=== PATIENT | female | born 1955 | race Caucasian/White ===

== ENCOUNTER 2019-10-07 10:28 | Outpatient (CLI) | payer MEDICARE ==
[2019-10-07 13:28] LABS: BASOPHILS # (AUTO) 0.02 x10^3/uL (0-0.1); BASOPHILS % (AUTO) 0 % (0-1); EOSINOPHILS # (AUTO) 0.09 x10^3/uL (0-0.4); EOSINOPHILS % (AUTO) 2 % (1-7); INTERNATIONAL NORMALIZED RATIO 0.97 (0.93-1.1); LYMPHOCYTES # (AUTO) 1.35 x10^3/uL (1-3.4); LYMPHOCYTES % (AUTO) 27 % (22-44); MD NO; MEAN CORPUSCULAR HEMOGLOBIN 31.8 pg (27.0-34.8); MEAN CORPUSCULAR HGB CONC 33.7 g/dL (32.4-35.8); MEAN CORPUSCULAR VOLUME 94.4 fL (80-100); MEAN PLATELET VOLUME 10.5 fL (7.4-10.4); MONOCYTES # (AUTO) 0.55 x10^3/uL (0.2-0.8); MONOCYTES % (AUTO) 11 % (2-9); NEUTROPHILS # (AUTO) 2.92 x10^3/uL (1.8-6.8); NEUTROPHILS % (AUTO) 59 % (42-75); PLATELET COUNT 147 x10^3/uL (130-400); PROTHROMBIN TIME 10.2 Seconds (9.6-11.5); RED BLOOD COUNT 4.82 x10^6/uL (3.82-5.3); RED CELL DISTRIBUTION WIDTH 12.3 % (9.6-15.2)
[2019-10-07 13:37] LABS: ANION GAP 5 mmol/L (5-15); CALCIUM 9.2 mg/dL (8.5-10.1); CHLORIDE 105 mmol/L (98-107); CREATININE 1.06 mg/dL (0.55-1.02)
== END 2019-10-07 23:59 | disposition home or self-care (01) ==
LOC: CFH 10:28
PROVIDERS: ATTEND Internal Medicine Cardiovascular Disease
DX: I34.0 Nonrheumatic mitral (valve) insufficiency (principal); I10 Essential (primary) hypertension
CPT/HCPCS: 36415; 80048; 83735; 85025; 85610; 85730

== ENCOUNTER 2019-10-10 08:51 | Day surgery (SDC) | payer MEDICARE ==
[~2019-10-10] VITALS: Ht 167.6 cm; Wt 53.2 kg
[2019-10-10 09:34] VITALS: BP 130/72
[2019-10-10] MEDS ORDERED: SODIUM CHLORIDE 0.9% 1,000 ML IV SCH ×2 (09:38→11:45)
[2019-10-10] MEDS ORDERED: CHOL2000 PO (09:45)
[2019-10-10] MEDS ORDERED: MAGN400T36 PO (09:45)
[2019-10-10] MEDS ORDERED: POTA8CAP20 PO (09:45)
[2019-10-10] MEDS ORDERED: METO-93 PO (09:45)
[2019-10-10] MEDS ORDERED: DIPHENHYDRAMINE 50 MG/ML, 1ML IVPush ONE (10:00)
[2019-10-10] MEDS ORDERED: FENTANYL PF 100 MCG/2ML ONE (10:26)
[2019-10-10] MEDS ORDERED: MIDAZOLAM 1 MG/ML, 5ML ONE (10:26)
[2019-10-10] MEDS ORDERED: TICAGRELOR 90 MG TABLET ONE (10:26)
[2019-10-10] MEDS ORDERED: LIDOCAINE-MPF 1%, 5ML ONE (10:27)
[2019-10-10] MEDS ORDERED: BIVALIRUDIN 250 MG ONE (10:27)
[2019-10-10] MEDS ORDERED: HEPARIN 1,000 UNITS/ML, 10ML ONE (10:27)
[2019-10-10] MEDS ORDERED: PROPOFOL 50 ML ONE (10:59)
[2019-10-10] MEDS ORDERED: VERAPAMIL 2.5 MG/ML, 2ML ONE (11:26)
== END 2019-10-10 14:14 | disposition home or self-care (01) ==
LOC: CACL 08:51
PROVIDERS: ATTEND Internal Medicine Cardiovascular Disease
DX: I34.0 Nonrheumatic mitral (valve) insufficiency (principal); I10 Essential (primary) hypertension; F41.9 Anxiety disorder, unspecified; Z79.82 Long term (current) use of aspirin; Z79.899 Other long term (current) drug therapy
CPT/HCPCS: 93312; 93325; 93458; C1769; C1894; J1644; J2704; Q9967; J0583; J2250; J3010

== ENCOUNTER 2020-01-24 08:01 | Outpatient (CLI) | payer MEDICARE ==
[~2020-01-24 08:01] MED LIST: ACET325T26 PO; ASPI81TA45 PO; BIOT1CAP3 PO; CENTRUM MVT PO; CHOL2000 PO; FURO-93 PO; MAGN400T36 PO; METO-93 PO; MINO60SO TP; POTA10TA5 PO; POTA8CAP20 PO; WARF5TAB PO
== END 2020-01-24 23:59 | disposition home or self-care (01) ==
LOC: CFH 08:01
PROVIDERS: ATTEND Internal Medicine Cardiovascular Disease
DX: I08.2 Rheumatic disorders of both aortic and tricuspid valves (principal); R00.2 Palpitations; Z95.2 Presence of prosthetic heart valve
CPT/HCPCS: 93306

== ENCOUNTER → 2020-12-23 | Outpatient (CLI) | payer MEDICARE ==
[~2020-12-23] MED LIST changes: -WARF5TAB PO; +WARF5TAB2 PO
== END | disposition home or self-care (01) ==
LOC: CFH 10:03
PROVIDERS: ATTEND Internal Medicine Cardiovascular Disease
DX: I08.0 Rheumatic disorders of both mitral and aortic valves (principal); I42.9 Cardiomyopathy, unspecified; Z85.820 Personal history of malignant melanoma of skin
CPT/HCPCS: 93306